=== PATIENT | female | born 1985 | race Caucasian/White ===

== ENCOUNTER 2017-12-15 15:55 | Inpatient (IN) | payer OTHER ==
[2017-12-15 16:49] VITALS: BMI 26.2
[2017-12-15] MEDS ORDERED: ELECTROLYTE-148 SOLN 500 ML IV SCH ×2 (18:00→18:30)
[2017-12-15] MEDS ORDERED: CITRIC ACID/SODIUM CITRATE 30 ML UNIT-DOSE CUP PO ONE (18:00)
[2017-12-15] MEDS ORDERED: BUTORPHANOL TARTRATE 1 MG/ML VIAL ONE (19:10)
[2017-12-15] MEDS ORDERED: PROMETHAZINE HCL 25 MG/1 ML VIAL ONE (19:10)
[2017-12-15] MEDS ORDERED: ONDANSETRON 4 MG/2 ML VIAL IVPUSH PRN (19:22)
[2017-12-15] MEDS ORDERED: morphine SULFATE/Preservative Free 0.5 MG/ML (1cc Syringe) EP ONE (19:30)
[2017-12-15] MEDS ORDERED: PROMETHAZINE HCL 25 MG/1 ML VIAL IVPUSH ONE (20:15)
[2017-12-15] MEDS ORDERED: BUTORPHANOL TARTRATE 1 MG/ML VIAL IVPUSH ONE (20:15)
[2017-12-15] MEDS ORDERED: OXYTOCIN 20 UNITS in 0.9% NS 20 UNIT/1,000 ML INFUS.BAG IV ONE ×2 (20:38→23:32)
--- NOTE | 2017-12-15 20:52 | HP ---
Past Medical History - Admission Chief Complaint: Labor pain History of Present Illness: 31 yo @ 39 weeks gestation, EDC 12/22/17, admitted for labor pain. Patient requests delivery due to prior pubic symphysis separation. History Source: Patient Limitations to Obtaining History: No Limitations - Past Medical History ...: 2 ...Para: 1 ...Term: 1 ...: 0 ...Spon : 0 ...Induced : 0 ...Multiple Gestation: 0 ...LMP: 03/17/17 ... Weeks Gestation by Dates: 39.0 ...EDC by Dates: 12/22/17 - Past Surgical History Past Surgical History: Yes: None Hx Myomectomy: No Hx Transabdominal Cerclage: No - Smoking History Smoking history: Never smoked Have you smoked in the past 12 months: No - Alcohol/Substance Use Hx Alcohol Use: No History of Substance Use: reports: None - Social History Usual Living Arrangement: Yes: With Spouse History of Recent Travel: No Home Medications - Allergies Allergies/Adverse Reactions: Allergies Allergy/AdvReac Type Severity Reaction Status Date / Time No Known Allergies Allergy Verified 12/15/17 12:00 - Home Medications Home Medications: Ambulatory Orders NK [No Known Home Medication] 12/15/17 Family Disease History - Family Disease History Family History: Unremarkable Review of Systems - Review of Systems Constitutional: reports: No Symptoms Eyes: reports: No Symptoms HENT: reports: No Symptoms Neck: reports: No Symptoms Cardiovascular: reports: No Symptoms Respiratory: reports: No Symptoms Gastrointestinal: reports: No Symptoms Genitourinary: reports: Pain Breasts: reports: No Symptoms Reported Musculoskeletal: reports: No Symptoms Integumentary: reports: No Symptoms Neurological: reports: No Symptoms Endocrine: reports: No Symptoms Hematology/Lymphatic: reports: No Symptoms Psychiatric: reports: No Symptoms Pain Intensity: 8 Physical Exam - Maternity Vital Signs: Vital Signs Temperature 92 F L 12/15/17 18:00 Pulse Rate 97 H 12/15/17 20:00 Respiratory Rate 20 12/15/17 20:00 Blood Pressure 123/77 12/15/17 20:00 O2 Sat by Pulse Oximetry (%) Constitutional: Yes: Well Nourished Eyes: Yes: Conjunctiva Clear HENT: Yes: Atraumatic Neck: Yes: Supple Cardiovascular: Yes: Regular Rate and Rhythm Lungs: Clear to auscultation - Vaginal Exam/OB Dilatation (cm): 4 Presentation: Vertex/Position - Physical Exam Integumentary: Yes: WNL ...Motor Strength: WNL Psychiatric: Yes: Alert, Oriented Problem List - Problems (1) Pain during labor Code(s): O99.89 - OTH DISEASES AND CONDITIONS COMPL PREG/CHLDBRTH; R52 - PAIN, UNSPECIFIED Assessment/Plan Active labor @ 39 weeks gestation Pre op for Consent signed Anesthesia to see patient
[2017-12-15] MEDS ORDERED: morphine SULFATE/Preservative Free 0.5 MG/ML (1cc Syringe) ONE (20:53)
[2017-12-15] MEDS ORDERED: ceFAZolin SODIUM 1 GM VIAL ONE (20:54)
[2017-12-15] MEDS ORDERED: SODIUM CHLORIDE 0.9% P/F 10 ML VIAL IJ ONE (20:54)
[2017-12-15] MEDS ORDERED: OXYTOCIN 10 UNITS/ML VIAL ONE (21:16)
[2017-12-15] MEDS: OXYTOCIN 20 UNITS in 0.9% NS 20 UNIT/1,000 ML INFUS.BAG IV SCH (21:18)
[2017-12-15] MEDS ORDERED: MIDAZOLAM HCL 2 MG/2 ML SINGLE DOSE VIAL ONE (21:20)
[2017-12-15] MEDS ORDERED: KETOROLAC TROMETHAMINE 30 MG/1 ML VIAL ONE (21:27)
[2017-12-15] MEDS ORDERED: METHYLERGONOVINE MALEATE 0.2 MG/1 ML AMP IM PRN (21:52)
[2017-12-15] MEDS ORDERED: oxyCODONE HCL 5 MG TABLET PO PRN (21:52)
--- NOTE | 2017-12-15 21:55 | OP ---
Operative Note - Note: Operative Date: 12/15/17 Pre-Operative Diagnosis: Inability to tolerate labor Operation: Primary Low transverse Findings: Baby boy in LOT position Post-Operative Diagnosis: Same as Pre-op Surgeon: Sravanthi Valentine Senior Major Gifts Officer: Isela Marino Anesthesia: Spinal Specimens Removed: Placenta Estimated Blood Loss (mls): 600
[2017-12-16] MEDS: OXYTOCIN 20 UNITS in 0.9% NS 20 UNIT/1,000 ML INFUS.BAG IV SCH (06:08)
[2017-12-16 07:34] LABS: BASO % 0.3 % (0-2.0); EOS % 0.1 % (0-4.5); HEMATOCRIT 28.5 % (32.4-45.2); HEMOGLOBIN 9.6 GM/dL (10.7-15.3); LYMPH % 15.9 % (8-40); MCH 28.2 pg (25.7-33.7); MCHC 33.6 g/dl (32.0-36.0); MEAN CELL VOLUME 83.9 fl (80-96); MEAN PLT VOLUME 9.6 fl (7.5-11.1); NEUT % 74.7 % (42.8-82.8); PLATELET COUNT 209 K/MM3 (134-434); RDW 13.2 % (11.6-15.6); WHITE BLOOD COUNT 16.7 K/mm3 (4.0-10.0)
--- NOTE | 2017-12-16 08:32 | PN ---
Progress Note (short form) - Note Progress Note: Anesthesia Post op/pain Pt seen and examined S:alert and awake comfortable O: Vital Signs Temperature 99.1 F 12/16/17 06:00 Pulse Rate 87 12/16/17 06:00 Respiratory Rate 18 12/16/17 06:00 Blood Pressure 124/57 12/16/17 06:00 O2 Sat by Pulse Oximetry (%) 100 12/15/17 23:05 CBC, BMP 12/16/17 07:00 A/P: Current Active Problems Pain during labor (Acute) s/p c section Doing well post op Continue current care Albin Ndiaye MD
[2017-12-16] MEDS: IBUPROFEN 600 MG TABLET (FP) PO PRN (14:59)
[2017-12-16] MEDS: SIMETHICONE 80 MG TAB.CHEW (FP) PO PRN (15:01)
[2017-12-16] MEDS ORDERED: BISACODYL 10 MG SUPP.RECT RC PRN (21:52)
[2017-12-17] MEDS: IBUPROFEN 600 MG TABLET (FP) PO PRN ×4 (05:39→23:46)
[2017-12-17] MEDS: SIMETHICONE 80 MG TAB.CHEW (FP) PO PRN ×4 (05:39→23:46)
[2017-12-17] MEDS ORDERED: DIPHTH,PERTUSS(ACELL),TET 0.5 ML DISP.SYRIN IM ONE (10:00)
--- NOTE | 2017-12-17 10:42 | PN ---
Post Progress Note - Subjective Subjective: 31 yo Para 2 status post primary , seen and evaluated. Doing well Post Day: 2 Type of Delivery: Primary C/S Vital Signs: Vital Signs Temperature 98.7 F 12/17/17 08:43 Pulse Rate 79 12/17/17 08:43 Respiratory Rate 18 12/17/17 08:43 Blood Pressure 111/71 12/17/17 08:43 O2 Sat by Pulse Oximetry (%) 100 12/15/17 23:05 Breast Exam: Yes: Soft Uterus: Yes: Fundus Firm Incision: Yes: Dressing dry and intact Abdomen/GI: Yes: Abdomen soft, Tolerating PO Lochia: Yes: Rubra Lochia, amount: Small Extremities: Yes: Calves non-tender Perineum: Yes: Intact Activity: Ambulating - Labs Labs: CBC WBC 16.7 K/mm3 (4.0-10.0) H 12/16/17 07:00 RBC 3.40 M/mm3 (3.60-5.2) L D 12/16/17 07:00 Hgb 9.6 GM/dL (10.7-15.3) L D 12/16/17 07:00 Hct 28.5 % (32.4-45.2) L D 12/16/17 07:00 MCV 83.9 fl (80-96) 12/16/17 07:00 MCH 28.2 pg (25.7-33.7) 12/16/17 07:00 MCHC 33.6 g/dl (32.0-36.0) 12/16/17 07:00 RDW 13.2 % (11.6-15.6) 12/16/17 07:00 Plt Count 209 K/MM3 (134-434) 12/16/17 07:00 MPV 9.6 fl (7.5-11.1) 12/16/17 07:00 Neutrophils % 74.7 % (42.8-82.8) 12/16/17 07:00 Lymphocytes % 15.9 % (8-40) 12/16/17 07:00 Monocytes % 9.0 % (3.8-10.2) 12/16/17 07:00 Eosinophils % 0.1 % (0-4.5) 12/16/17 07:00 Basophils % 0.3 % (0-2.0) 12/16/17 07:00 Nucleated RBC % 0 % (0-0) 12/16/17 07:00 Problem List - Problems (1) Pain during labor Code(s): O99.89 - OTH DISEASES AND CONDITIONS COMPL PREG/CHLDBRTH; R52 - PAIN, UNSPECIFIED (2) Status post primary low transverse section Code(s): Z98.891 - HISTORY OF UTERINE SCAR FROM PREVIOUS SURGERY Assessment/Plan Status post primary Stable Ambulation Analgesia as needed Continue routine care
[2017-12-18 08:31] LABS: BASO % 0.3 % (0-2.0); EOS % 0.8 % (0-4.5); HEMATOCRIT 29.6 % (32.4-45.2); HEMOGLOBIN 9.8 GM/dL (10.7-15.3); LYMPH % 14.9 % (8-40); MCH 28.2 pg (25.7-33.7); MCHC 33.2 g/dl (32.0-36.0); MEAN CELL VOLUME 84.8 fl (80-96); MEAN PLT VOLUME 9.4 fl (7.5-11.1); MONO % 7.2 % (3.8-10.2); NEUT % 76.8 % (42.8-82.8); PLATELET COUNT 275 K/MM3 (134-434); RBC 3.49 M/mm3 (3.60-5.2); RDW 13.3 % (11.6-15.6); WHITE BLOOD COUNT 12.9 K/mm3 (4.0-10.0)
[2017-12-18] MEDS: IBUPROFEN 600 MG TABLET (FP) PO PRN (11:20)
[2017-12-18] MEDS: SIMETHICONE 80 MG TAB.CHEW (FP) PO PRN (11:20)
[2017-12-18 11:56] VITALS: BP 116/73; PULSE 80; TEMP 98.5
--- NOTE | 2017-12-18 13:16 | DS ---
Physical Exam-BUSSER Vital Signs: Vital Signs Temperature 98.5 F 12/18/17 10:00 Pulse Rate 80 12/18/17 10:00 Respiratory Rate 20 12/18/17 10:00 Blood Pressure 116/73 12/18/17 10:00 O2 Sat by Pulse Oximetry (%) 100 12/15/17 23:05 Constitutional: Yes: Well Nourished Eyes: Yes: Conjunctiva Clear HENT: Yes: Atraumatic Neck: Yes: Supple Cardiovascular: Yes: Regular Rate and Rhythm Respiratory: Yes: Regular Gastrointestinal: Yes: Normal Bowel Sounds Pelvis: Yes: WNL External Genitalia: Yes: Normal Vaginal Exam: Yes: Normal Cervix: Yes: Normal Uterus: Yes: Firm Breast(s): Yes: WNL Extremities: Yes: WNL Wound/Incision: Yes: Well Approximated, Bucky Intact Neurological: Yes: Alert, Oriented ...Motor Strength: WNL Psychiatric: Yes: Alert, Oriented Labs: CBC, BMP 12/18/17 07:15 Delivery - Delivery Type of Anesthesia: Spinal EBL (cc): 600 Delivery, Single - Stages of Labor Date 1st Stage Initiatied: 12/15/17 Time 1st Stage Initiated: 15:00 Date of Delivery: 12/15/17 Time of Delivery: 21:17 Time Placenta Delivered: 21:18 - Condition of Infant Toll Bridge Operator/Food Quality Tester Present: Yes Name: Payal Mcpherson Infant Gender: Male Weight: 8 lb Position: Left, OT Total Hours ROM (Hrs/Mins): 0Hrs/1Min - 1 Minute Total Score: 9 5 Minutes Total Score: 9 - Feeding Plan Initial Plan: Exclusive throughout hospitalization Discharge Summary Reason For Visit: Current Active Problems Pain during labor (Acute) Status post primary low transverse section (Acute) Procedures: Principal: Primary Hospital Course: Routine post op care Condition: Good - Instructions Diet, Activity, Other Instructions: Regular diet No driving, no lifting x 4 weeks F/U in clinic for bucky removal in 1 week. Disposition: HOME - Home Medications Comprehensive Discharge Medication List: Ambulatory Orders NK [No Known Home Medication] 12/15/17
--- NOTE | 2017-12-21 11:49 | PATH ---
Surgical Pathology Report Patient Name: JULIANNA BATES Med. Rec. 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 Specimen(s) Received PLACENTA Clinical History Final Diagnosis PLACENTA, DELIVERY: FOCALLY DISRUPTED THIRD TRIMESTER PLACENTA WITH SUBCHORIONIC FIBRIN DEPOSITION, THREE VESSEL UMBILICAL CORD AND UNREMARKABLE PLACENTAL MEMBRANES. Electronically Signed Siva Kelley M.D. Gross Description The specimen is received fresh labeled placenta and is a 481 gram, 17 x 5 x 3 cm. placenta with attached membranes and umbilical cord. The attached membranes are mucoid and insert marginally. The umbilical cord measures 36 cm. in length and averages 1.4 cm. in diameter. The cord inserts eccentrically, 4 cm. to the nearest margin. No true knots or strictures are identified. Cut surface of the umbilical cord reveals a vessels. The surface is petty-blue with minimal fibrin deposition and appropriate caliber vessels. The maternal surface is red-brown with focal defects. Sectioning reveals red-brown, spongy parenchyma. No lesions are identified. Program Attendant sections are submitted in three cassettes as follows: 1- membrane rolls and umbilical cord; 2-3- full thickness sections of placenta. [facility]/12/20/2017 [facility]/12/20/2017
== END 2017-12-18 13:15 | disposition home or self-care (01) | DRG 540 ==
LOC: JLDR 15:55 → J3W 12-16
PROVIDERS: ADMIT Obstetrics & Gynecology; ATTEND Obstetrics & Gynecology
PROC: 10D00Z1 Extraction of Products of Conception, Low, Open Approach (ICD-10-PCS; principal; 2017-12-15)
DX: O82 Encounter for cesarean delivery without indication (principal); Z3A.39 39 weeks gestation of pregnancy; Z37.0 Single live birth
CPT/HCPCS: 36415; 85025; 85461; 88307-TC; 90715

== ENCOUNTER 2017-12-26 18:52 | Emergency (ER) | payer OTHER ==
--- NOTE | 2017-12-26 19:01 | PDOC ---
Rapid Medical Evaluation Time Seen by Provider: 12/26/17 18:57 Medical Evaluation: Allergies Allergy/AdvReac Type Severity Reaction Status Date / Time No Known Allergies Allergy Verified 12/15/17 12:00 12/26/17 18:58 I have performed a brief in-person evaluation of this patient. The patient presents with a chief complaint of: s/p 11 days w/ serosanguinous drainage today. No sig pain and no n/v/f/c. BIOCHEMIST is Dr Valentine. Seen by seismic observer yesterday for mild pain to site but states no discharge then and told no infection Pertinent physical exam findings:Unremarkable I have ordered the following:nothing The patient will proceed to the ED for further evaluation. Discharge Disposition - Diagnosis Wound discharge - Referrals - Patient Instructions - Post Discharge Activity
[2017-12-26 19:02] VITALS: BP 128/82; PULSE 76; TEMP 98.8; BMI 23.0
[2017-12-26] MEDS ORDERED: CEPHALEXIN MONOHYDRATE 500 MG CAPSULE (UD) PO ONE (20:08)
--- NOTE | 2017-12-26 20:08 | PDOC ---
History of Present Illness - General History Source: Patient <Jakub López - Last Filed: 12/26/17 20:10> - General History Source: Patient Exam Limitations: No Limitations - History of Present Illness Initial Comments: 12/26/17 20:13 The patient is a 31 year old female with no significant PMH who presents to the emergency department s/p on December 15, 2017 with mild drainage and erythema on the right corner of the incision. Patient saw Dr. Luevano, ELECTRONICS COMMODITY MANAGER, yesterday and said the incision was healing well. Patient denies fever, chills, nausea, and vomiting. Allergies: NKA Social history: No reported drug, alcohol, cigarette use. <Lainey Kinney - Last Filed: 12/26/17 20:15> - General Chief Complaint: Wound Stated Complaint: PAIN Time Seen by Provider: 12/26/17 18:57 Past History - Suicide/Smoking/Psychosocial Hx Smoking History: Never smoked Information on smoking cessation initiated: No Hx Alcohol Use: No Drug/Substance Use Hx: No Substance Use Type: None <Ese Lópezan - Last Filed: 12/26/17 20:10> <Lainey Kinney - Last Filed: 12/26/17 20:15> - Past Medical History Allergies/Adverse Reactions: Allergies Allergy/AdvReac Type Severity Reaction Status Date / Time No Known Allergies Allergy Verified 12/26/17 18:59 Home Medications: Ambulatory Orders Cephalexin Monohydrate [Keflex -] 500 mg PO BID #14 capsule 12/26/17 Review of Systems - Review of Systems Able to Perform ROS?: Yes Comments:: 12/26/17 20:13 CONSTITUTIONAL: Absent: fever, no chills, no fatigue EYES: Absent: visual changes ENT: Absent: ear pain, no sore throat CARDIOVASCULAR: Absent: chest pain, no palpitations RESPIRATORY: Absent: cough, no SOB GI: Absent: abdominal pain, no nausea, no vomiting, no constipation, no diarrhea Present: mild drainage and erythema from wound. GENITOURINARY: Absent: dysuria, no frequency, no hematuria MUSKULOSKELETAL: Absent: back pain, no arthralgia, no myalgia SKIN: Absent: rash NEURO: Absent: headache <Lainey Kinney - Last Filed: 12/26/17 20:15> *Physical Exam - Vital Signs Last Vital Signs Temp Pulse Resp BP Pulse Ox 98.8 F 76 20 128/82 99 12/26/17 18:55 12/26/17 18:55 12/26/17 18:55 12/26/17 18:55 12/26/17 18:55 <Jakub López - Last Filed: 12/26/17 20:10> - Vital Signs Last Vital Signs Temp Pulse Resp BP Pulse Ox 98.8 F 76 20 128/82 99 12/26/17 18:55 12/26/17 18:55 12/26/17 18:55 12/26/17 18:55 12/26/17 18:55 - Physical Exam Comments: 12/26/17 20:09 GENERAL: Well-appearing, well-nourished. No apparent distress. HEENT: Normocephalic, atraumatic. PERRL, EOM intact. CARDIOVASCULAR: Normal S1, S2. Regular rate and rhythm. PULMONARY: Clear to auscultation bilaterally. ABDOMEN: (+) slight erythema and small yellow serous drainage with mild tenderness from the right corner of the incision. Soft, non-distended. EXTREMITIES: Normal ROM in all four extremities. No gross deformities. SKIN: Warm, dry. No rash NEUROLOGICAL: No focal neurological deficits. <Lainey Kinney - Last Filed: 12/26/17 20:15> Medical Decision Making - Medical Decision Making 12/26/17 20:11 Dr. López: The scribe's documentation has been prepared under my direction and personally reviewed by me in its entirery. I confirm that the note above accurately reflects all work, treatment, procedures, and medical decision making performed by me. <Jakub López - Last Filed: 12/26/17 20:10> - Medical Decision Making 12/26/17 20:08 Dr. Valentine, ELECTRONICS COMMODITY MANAGER, was paged. <Lainey Kinney - Last Filed: 12/26/17 20:15> *DC/Admit/Observation/Transfer - Discharge Dispostion Decision to Admit order: No <Jakub López - Last Filed: 12/26/17 20:10> - Attestations Scribe Attestion: 12/26/17 20:09 Documentation prepared by Lainey Kinney, acting as medical equipment repairer for Jakub López MD. <Lainey Kinney - Last Filed: 12/26/17 20:15> Diagnosis at time of Disposition: Wound discharge - Discharge Dispostion Disposition: HOME - Prescriptions Prescriptions: Cephalexin Monohydrate [Keflex -] 500 mg PO BID #14 capsule - Referrals Referrals: Edith Moseley [Primary Care Provider] - - Patient Instructions Printed Discharge Instructions: DI for Wound Infection Additional Instructions: take medication as directed. Keep wound clean and dry. 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 - Post Discharge Activity
[2017-12-26] MEDS ORDERED: CEPHALEXIN MONOHYDRATE 500 MG CAPSULE (UD) ONE (20:11)
== END 2017-12-26 20:25 | disposition home or self-care (01) ==
LOC: JER 18:52
DX: T81.89XA Other complications of procedures, not elsewhere classified, initial encounter (principal); Z98.890 Other specified postprocedural states
CPT/HCPCS: 99282-25

== ENCOUNTER 2023-04-30 05:29 | Day surgery (SDC) | payer OTHER ==
[2023-04-26 10:48] VITALS: BMI 21.2
[2023-04-30] MEDS ORDERED: BUPIVACAINE HCL/PF 0.25% (2.5MG/ML) 10 ML VIAL ONE (07:03)
[2023-04-30] MEDS ORDERED: ceFAZolin SODIUM 1 GM VIAL IVPB ONE (07:17)
[2023-04-30] MEDS ORDERED: BUPIVACAINE HCL/PF 0.25% (2.5MG/ML) 10 ML VIAL IJ ONE ×3 (07:21→08:21)
[2023-04-30] MEDS ORDERED: HEPARIN NA (PORCINE) 5,000 UNITS/ML 1ML VIAL ONE (07:37)
[2023-04-30] MEDS ORDERED: CEFOXITIN SODIUM 1 GM IVPB ONE (07:37)
[2023-04-30] MEDS ORDERED: cefOXitin SODIUM 2 GM VIAL (RESTRICTED TO ID) IVPB ONE ×2 (07:40→08:06)
[2023-04-30] MEDS ORDERED: ACETAMINOPHEN INJECTION 100 ML IVPB ONE (08:13)
[2023-04-30] MEDS ORDERED: oxyCODONE HCL 5 MG TABLET PO PRN (09:04)
[2023-04-30 10:54] VITALS: RESP 20
[2023-04-30 12:11] VITALS: BP 109/68; PULSE 78; TEMP 98
== END 2023-04-30 12:11 | disposition home or self-care (01) ==
LOC: JASU-SURG 05:29
PROVIDERS: ATTEND Surgery
PROC: 0FT44ZZ Resection of Gallbladder, Percutaneous Endoscopic Approach (ICD-10-PCS; principal; 2023-04-30 08:00)
DX: K82.4 Cholesterolosis of gallbladder (principal)
CPT/HCPCS: 81025; 86850; 86900; 86901; 88305-TC; 94760; J1644